=== PATIENT | male | born 1995 | race Caucasian/White ===

== ENCOUNTER 2017-01-09 02:49 | Emergency (ER) | payer BC, OTHER ==
[~2017-01-09] VITALS: Ht 180.3 cm; Wt 102.7 kg
[2017-01-09 02:49] VITALS: O2SAT 97; Ht 180.3 cm; Wt 102.7 kg
--- NOTE | 2017-01-09 03:36 | EMERGENCY ROOM VISIT NOTE ---
History First contact with patient: 02:52 Chief Complaint: ALCOHOL OVERDOSE Stated Complaint: ALCOHOL OVERDOSE Nursing Triage Summary: [facility] Per EMS, Police found pt in Lobby while onscene for another incident. Pt found to be incontinent of urine. EMS called for pt evaluation. Pt reports drinking shots tonight at his apartment in [facility]. Denies drug use, trauma, pain, or injury. History of Present Illness The patient is a 21 year old male who presents to the Emergency Room via BLS for evaluation of a possible alcohol intoxication. Per EMS, the patient was found in the lobby of his apartment building and was incontinent of urine. The police were there due to another incident. The patient admits to drinking shots earlier tonight. He denies any drug use or trauma. He denies any history of medical problems. He has no complaints at this time. He denies any headache, neck pain, chest pain, shortness of breath, abdominal pain, nausea or vomiting. Review of Systems A complete 10 point review of systems was reviewed with the patient with pertinent positives and negatives as per history of present illness. All else were negative. Past Medical/Surgical History Medical Problems: (1) No Known Active Medical Problems Family History Unobtainable Social History Smoking Status: Never Smoker Alcohol Use: occasionally Housing Status: lives with friends Occupation Status: [employer] student Current/Historical Medications No Active Prescriptions or Reported Meds Allergies Coded Allergies: Amoxicillin (Verified Allergy, Unknown, UNKNOWN, 01/09/17) Physical Exam Vital Signs Date Time Temp Pulse Resp B/P Pulse Ox O2 Delivery O2 Flow Rate FiO2 01/09/17 03:43 36.9 94 20 150/75 97 01/09/17 03:42 94 20 150/75 97 Room Air 01/09/17 02:59 103 01/09/17 02:49 97 Room Air 01/09/17 02:49 36.9 103 16 143/103 97 Room Air Physical Exam VITALS: Vitals are noted on the nurse's note and reviewed by myself. Vital signs stable. GENERAL: This is a 21-year-old male, resting comfortably in bed, awake, appears to be visibly intoxicated, smells of ETOH, repeatedly asking when he can go home. SKIN: The skin was without erythema, edema, or bruising. HEAD: Normocephalic atraumatic. EARS: External auditory canals clear. No hemotympanum. EYES: Pupils equal round and reactive to light and accommodation. NOSE: No deformities noted. MOUTH: No loose or chipped teeth. NECK: No cervical spine tenderness. HEART: Regular rate and rhythm without murmurs gallops or rubs. LUNGS: Clear to auscultation bilaterally without wheezes, rales or rhonchi. ABDOMEN: Soft, nontender. MUSCULOSKELETAL: Full range of motion throughout. Strength intact throughout. NEURO: Patient was alert and oriented to person place and time. Speech slightly slurred. Gross sensation intact. Patient cooperative with examiner. Medical Decision & Procedures Laboratory Results 01/09/17 03:24 Test 01/09/17 03:24 Anion Gap 9.0 mmol/L (3-11) Est Creatinine Clear Calc Drug Dose 142.5 ml/min Estimated GFR () 124.1 Estimated GFR (Non- 107.1 BUN/Creatinine Ratio 15.4 (10-20) Calcium Level 8.9 mg/dl (8.5-10.1) Ethyl Alcohol mg/dL 299.0 mg/dl (0-3) Medical Decision Differential diagnosis includes alcohol intoxication, trauma, drug intoxication , among others. The patient was evaluated as above. Alcohol was found to be 299. Glucose was found to be 120. Renal functions within normal limits. The patient was intoxicated, but was alert and awake throughout his stay. He was able to contact two sober friends. I personally spoke with them and they were comfortable taking the patient home. I instructed the patient to drink plenty of fluids today and to not drink anymore alcohol. He was agreeable and will follow-up with [facility] as needed. He verbalized understanding and was discharged home in good condition. Impression Primary Impression: Alcoholic intoxication Departure Information Dispostion Home / Self-Care Condition GOOD Prescriptions No Active Prescriptions or Reported Meds Referrals [facility] (PCP) Patient Instructions My [facility] Additional Instructions Do not drink any alcohol today. Drink plenty of fluids, especially gatorade and other electrolyte drinks. For pain control, you can use the following [id number] medicines (if >12 yo): - Regular strength (325mg/tab) Tylenol (acetaminophen) 2 tabs every 4-6 hours as needed. Do not exceed 12 tablets in a 24 hour period. Avoid taking more than 4 grams (4000 mg) of Tylenol per day. This includes any other sources of acetaminophen you may take on a regular basis. - Regular strength (200 mg/tab) Advil (ibuprofen) 1-2 tabs every 4-6 hours as needed. Do not exceed a dose of 3200 mg per day. Follow-up with [facility] services as needed. Problem Qualifiers Primary Impression: Alcoholic intoxication Complication of substance-induced condition: uncomplicated Qualified Codes: F10.920 - Alcohol use, unspecified with intoxication, uncomplicated
[2017-01-09 03:43] VITALS: BP 150/75; PULSE 94; TEMP 36.9; O2SAT 97
[2017-01-09 03:52] LABS: BUN/CREATININE RATIO 15.4 (10-20); CALCIUM 8.9 mg/dl (8.5-10.1); POTASSIUM 3.7 mmol/L (3.5-5.1)
== END 2017-01-09 03:44 | disposition home or self-care (01) ==
LOC: EDBD 02:49 → C.EDB 02:51
DX: F10.129 Alcohol abuse with intoxication, unspecified (principal); Y90.8 Blood alcohol level of 240 mg/100 ml or more; Z88.1 Allergy status to other antibiotic agents